=== PATIENT | male | born 1955 | race Caucasian/White ===

== ENCOUNTER 2024-10-12 17:03 | Emergency (ER) | payer MEDICARE, BC, SELFPAY ==
[2024-10-12] VITALS (19 sets, daily range): BP systolic 138–197; BP diastolic 78–102; PULSE 59–89; RESP 13; TEMP 36.6; O2SAT 91–99
--- NOTE | 2024-10-12 17:42 | ED.GENADUL_ITS ---
Discharge Plan Disposition Patient Disposition: Home Condition: Stable Discharge Details Clinical Impression: Hematuria, Unable to void Primary Care Provider: Gabrielle,Local ED Provider: Marily Solitario Home Meds and New Rx's Prescriptions: Continued metformin 500 mg tablet 500 mg PO TID Patient Comments: Pt states he takes 1g in the AM + 500 mg at night atorvastatin 80 mg tablet 80 mg PO DAILY oxybutynin chloride 10 mg tablet extended release 24hr 10 mg PO DAILY Discharge Instructions Instructions: How to Care for Your Ballesteros Catheter, Urinary Retention (DC), Blood in Urine (Hematuria), Adult ED Additional Instructions: No evidence of urinary tract infection at this time. Please follow-up with urology within the next 2 to 3 days. Please empty the Ballesteros catheter as directed. Wash your hands before handling the catheter. If the catheter stops draining you may attempt to irrigate it with some normal saline. Please return to the ER be seen sooner for any fever chills vomiting or any concerns. Follow up with Urologist/primary care provider in 3-5 days. Return to ED sooner if any worsening or concerns. Discharge Data Discharge Date/Time-TO BE ENTERED AT DEPARTURE: 10/12/24 20:10 HPI General Mode of arrival: ambulatory . Date/Time Provider Initiated Documentation: 10/12/24 17:33 . Limitations to Documentation: no limitations . Information obtained by: patient, family, RN notes reviewed and old records reviewed . HPI Narrative: 69-year-old male presents with hematuria and urinary retention since this morning. Does have a history of prostate cancer prostatectomy approximately 26 years ago. He reports he does have intermittent hematuria and approximately 6 years ago he did have to have a catheterization. [place] from [place] sees urology in [place]. Denies any fever or chills or any other associated symptoms. Related Data Home Medications ?Medication ?Instructions ?Recorded ?Confirmed atorvastatin 80 mg tablet 80 mg PO DAILY 10/12/24 10/12/24 metformin 500 mg tablet 500 mg PO TID 10/12/24 10/12/24 oxybutynin chloride 10 mg 10 mg PO DAILY 10/12/24 10/12/24 tablet,extended release 24 hr Allergies Allergy/AdvReac Type Severity Reaction Status Date / Time No Known Allergies Allergy Verified 10/12/24 17:10 General Stated Complaint: Urinary TIFFANY: 3 Review of Systems All systems reviewed & are unremarkable except as noted in HPI and below Genitourinary Genitourinary: Reports as per HPI, Reports hematuria and Reports difficulty urinating Exam Narrative Exam Narrative: Constitutional: Alert and oriented x3. Appears stated age. Normal body habitus. Head: Normocephalic, no trauma. Eyes: Pupils PERRL, Red reflex noted, EOM's intact. Eyelids symmetrical without lesions, discharge, or swelling. Chest: RRR, Normal S1, S2, distal pulses intact. Resp: Lungs clear to auscultation bilaterally, no wheezes, rales, or rhonchi. Abdomen: Soft, non-distended, Normoactive bowel sounds all 4 quads. Suprapubic tenderness and fullness. Musculoskeletal: Normal gait, Moves all 4 extremities without difficulty. Skin: No suspicious rashes or lesions. Capillary refill less than 2 sec. Neurologic: Cranial nerves II-XII intact. Alert and oriented x 3. Motor: No deficits noted. Sensory: Intact bilaterally all 4 extremities. Hematologic/Lymphatic: No ecchymosis, no lymphadenopathy. Course Vital Signs Vital signs: Vital Signs Temperature 36.6 C 10/12/24 17:04 Pulse 89 10/12/24 17:04 Respiratory Rate 13 10/12/24 17:04 Blood Pressure 197/102 H 10/12/24 17:04 Pulse Oximetry 98 10/12/24 17:04 Temperature 36.6 C 10/12/24 17:14 Temperature Source Oral 10/12/24 17:14 Pulse 89 10/12/24 17:14 Respiratory Rate 13 10/12/24 17:14 Blood Pressure 197/102 H 10/12/24 17:14 Blood Pressure Position Sitting 10/12/24 17:14 Pulse Oximetry 98 10/12/24 17:14 Oxygen Delivery Method Room Air 10/12/24 17:14 Oxygen Flow Rate 0 10/12/24 17:14 Pain Level 8 10/12/24 17:14 Medical Decision Making 69-year-old male presents with hematuria and urinary retention since this morning. Does have a history of prostate cancer prostatectomy approximately 26 years ago. He reports he does have intermittent hematuria and approximately 6 years ago he did have to have a catheterization. He is from out of [facility] sees urology in [place]. Denies any fever or chills or any other associated symptoms. Bladder scan upon arrival shows over 600 cc of urine. Will insert Ballesteros catheter I did discuss leg bag and keeping the catheter in upon discharge he verbalizes understanding. Ballesteros inserted by ED staff over 500 cc of dark red output noted. Patient repor ts improvement in symptoms. Instructed staff to irrigate by hand with sterile normal saline. Pending urinalysis. Urinalysis shows no nitrites no leukocytes large blood greater than 300 protein greater than 50 RBCs. ED staff that the original Ballesteros was DC'd during hand irrigation and attempting to put in a coud? Ballesteros at this time. New Ballesteros placed which is draining pink-tinged urine at this time patient reports relief of symptoms. No evidence of urinary tract infection. Will discharge with a leg bag with follow-up with patient's urologist. This text was generated using [employer] system, please disregard any oddities of phrase or misspellings. Medical Records Medical records reviewed: Yes I reviewed the patient's medical records. Lab Data Lab results reviewed: Yes I reviewed the patient's lab results. Labs: Laboratory Tests Range/Units 10/12/24 18:27 Urine Color (Yellow) Brown Urine Clarity (Clear) Cloudy Urine pH (5-8) 5.5 Ur Specific [place] (1.005-1.025) >= 1.030 H Urine Protein (Neg-Trace) mg/dL >=300 H Urine Ketones (Negative) mg/dL Negative Urine Blood (Negative) Large H Urine Nitrite (Negative) Negative Urine Bilirubin (Negative) Small H Urine Urobilinogen (Up to 0.2) mg/dL 0.2 Ur Leukocyte Esterase (Negative) Negative Urine RBC (0-2) HPF >50 H Urine WBC Not Applicable Ur Epithelial Cells Not Applicable Urine Crystals Not Applicable Urine Bacteria Not Applicable Urine Mucus Not Applicable Ur Culture Indicated? No Urine Glucose (Negative) mg/dL 100 H Quality:SDOH Health Related Social Needs: No Data to Display PFSH All Active Problems (Updated 10/12/24 @ 19:47 by Marily Solitario NP) Unable to void (Acute) Hematuria (Acute) Social History Smoking/Tobacco Use Status: Never Smoking risk assessment performed?: Yes Alcohol Intake: current Alcohol Intake frequency: holidays/special occasions only Drug use: Never Substance use type: does not use Do you feel safe at home: Yes Do you feel safe in your relationship?: Yes
[2024-10-12 18:38] LABS: Bilirubin Small (Negative); Clarity Cloudy (Clear); Glucose 100 mg/dL (Negative); Ketones Negative (Negative); Leukocyte Esterase Negative (Negative); Nitrite Negative (Negative); Specific Gravity >= 1.030 (1.005-1.025); Urobilinogen 0.2 mg/dL (Up to 0.2); pH 5.5 (5-8)
[2024-10-12 18:40] LABS: Blood Large (Negative); RBC >50 HPF (0-2)
[2024-10-12 18:41] LABS: C & S Indicated? No
[2024-10-12] MEDS: Lidocaine 2% Jelly 11 ML SYR UR (19:45)
[2024-10-12] MEDS: Lidocaine 2% Jelly 6 ML SYR ×2 (19:45)
== END 2024-10-12 20:10 | disposition home or self-care (01) ==
PROVIDERS: Emergency Provider Registered Nurse Emergency
DX: N02.9 Recurrent and persistent hematuria with unspecified morphologic changes (principal); R33.9 Retention of urine, unspecified; Z85.46 Personal history of malignant neoplasm of prostate; Z90.79 Acquired absence of other genital organ(s)
CPT/HCPCS: 99284; 81003; 81015